=== PATIENT | female | born 1950 | race Caucasian/White ===

== ENCOUNTER 2020-04-05 08:29 | Outpatient (CLI) | payer MEDICARE, SELFPAY ==
--- NOTE | ~2020-04-05 | DEXA_ITS ---
Bone Density Report Name: Gogo Pang Age: 69 Sex: Female Ethnicity: White Date of : 1950 Indication: osteopenia; prior fracture; hysterectomy; Referring Provider: PHYSICIAN NOT ON STAFF Study: Bone densitometry was performed. Exam Date: April 05, 2020 Accession number: [id number] Bone Density: Region BMD T-score Z-score Classification AP Spine (L1-L4) 0.775 -2.5 -0.3 Osteoporosis Femoral Neck (Left) 0.665 -1.7 0.2 Osteopenia Total Hip (Left) 0.752 -1.6 0.0 Osteopenia Total Hip Bilateral Avg 0.757 -1.6 0.0 Osteopenia Femoral Neck (Right) 0.691 -1.4 0.4 Osteopenia Total Hip (Right) 0.762 -1.5 0.0 Osteopenia World Health Organization criteria for BMD impression classify patients as: Normal (T-score at or above -1.0), Osteopenia (T-score between -1.0 and -2.5), or Osteoporosis (T-score at or below -2.5). 10-year Fracture Risk: FRAX not reported because: Some T-score for Spine Total or Hip Total or Femoral Neck at or below -2.5 Previous Exams: Region Exam Age BMD T-score BMD Change BMD Change Date g/cm2 vs Baseline vs Previous AP Spine(L1-L4) 04/05/2020 69 0.775 -2.5 -0.021(-2.7%) -0.021(-2.7%) 11/21/2016 66 0.797 -2.3 Total Hip(Left) 04/05/2020 69 0.752 -1.6 0.003(0.4%) 0.003(0.4%) 11/21/2016 66 0.749 -1.6 Total Hip(Right) 04/05/2020 69 0.762 -1.5 -0.004(-0.5%) -0.004(-0.5%) 11/21/2016 66 0.767 -1.4 *Denotes significance at 95% confidence level, LSC for AP Spine = 0.022 g/cm2, LSC for Total Hip = 0.027 g/cm2 Clinical Information Provided by Patient: Has had a low trauma fracture Has the following medical conditions: Hysterectomy Patient maximum height was 67.5 Menopause Age: 36 Onset of menses at age 13 Number of children 2 Impression: The patient has established osteoporosis, based on the Total Spine T-score and the existence of a prior fracture. The patient has risk factors, including: previous fracture. No significant bone loss was observed. Discussion: HIGH RISK OF FRACTURE. BONE DENSITY IS UNDESIRABLY LOW AT ONE OR MORE SKELETAL SITES, CONSISTENT WITH POSTMENOPAUSAL OSTEOPOROSIS. This patient's lowest T-score, in a patient who has previously fractured, meets the World Health Organization's (WHO) criteria for severe osteoporosis. In untreated patients, the risk of osteoporotic fracture increases approximately two-fold for each 1.0 SD decrease in T-score. Low bone density is not the only risk factor for fractu
--- NOTE | ~2020-04-05 | MM_ITS ---
EXAMINATION: MM screening [facility] BI w jaden HISTORY: Screening mammogram TECHNIQUE: Craniocaudal and mediolateral oblique 3-D tomosynthesis images were obtained and synthetic 2-D images were generated. CAD analysis was submitted and interpreted. COMPARISON: 07/07/2018, 06/26, 07/01/2016 bilateral digital screening mammogram examinatio ns BREAST PARENCHYMAL COMPOSITION: There are scattered areas of fibroglandular density. FINDINGS: Bilateral benign calcifications including partially calcified left fibroadenoma in the lowe r mid left breast. There is no evidence of suspicious mass, calcification, or architectural distortio n to suggest malignancy in either breast. There has been no suspicious interval change. IMPRESSION: 1. No mammographic evidence of malignancy. 2. Recommend routine screening mammography in one year. BI-RADS Category 2: Benign finding(s). Reviewed, dictated and finalized at location A.
== END 2020-04-05 08:30 | disposition home or self-care (01) ==
DX: Z12.31 Encounter for screening mammogram for malignant neoplasm of breast (principal); Z78.0 Asymptomatic menopausal state; M81.0 Age-related osteoporosis without current pathological fracture; M85.852 Other specified disorders of bone density and structure, left thigh; M85.851 Other specified disorders of bone density and structure, right thigh
CPT/HCPCS: 77063; 77067; 77080

== ENCOUNTER 2021-04-10 09:46 | Outpatient (CLI) | payer MEDICARE, SELFPAY ==
--- NOTE | ~2021-04-10 | MM_ITS ---
EXAMINATION: MM screening [facility] BI w jaden HISTORY: Screening TECHNIQUE: Craniocaudal and mediolateral oblique 3-D tomosynthesis images were obtained and synthetic 2-D images were generated. CAD analysis was submitted and interpreted. COMPARISON: Comparison to multiple prior studies sequentially, with oldest reviewed study dated 06/07. BREAST PARENCHYMAL COMPOSITION: There are scattered areas of fibroglandular density. FINDINGS: Stable benign-appearing left breast mass. There is no evidence of suspicious mass, calcific ation, or architectural distortion to suggest malignancy in either breast. There has been no suspicio us interval change. IMPRESSION: 1. No mammographic evidence of malignancy. 2. Recommend routine screening mammography in one year. BI-RADS Category 2: Benign finding(s). Reviewed, dictated and finalized at location A.
== END 2021-04-10 09:47 | disposition home or self-care (01) ==
LOC: ANHIMG 09:51
DX: Z12.31 Encounter for screening mammogram for malignant neoplasm of breast (principal)
CPT/HCPCS: 77063; 77067

== ENCOUNTER 2022-01-29 10:28 | Outpatient (CLI) | payer MEDICARE, SELFPAY ==
--- NOTE | ~2022-01-29 | MR_ITS ---
EXAMINATION: MR knee RT wo/w con DATE: 01/29/2022 11:22 INDICATION: Localized swelling, mass and lump at the right knee TECHNIQUE: Magnetic resonance imaging (MRI) of the right knee was performed without and with 11 mL Mu ltihance intravenous contrast. Sequences included coronal PD-weighted FSE, coronal PD-weighted FS FS E, sagittal T2-weighted FSE, sagittal PD-weighted FS FSE and axial PD weighted fat saturated FSE, axi al T1-weighted fat saturated FSE and postcontrast axial, sagittal and coronal T1-weighted fat-saturat ed FSE. COMPARISON: Right knee radiographs dated 01/16/2022 FINDINGS: Medial compartment: Longitudinal tear extending obliquely from the periphery to the inferior articular surface at the kirill ction of the middle and peripheral thirds of the posterior horn of the medial meniscus. Shallow chond ral ulceration along the anterior weightbearing medial femoral condyle. Lateral compartment: Lateral meniscus is normal. Shallow chondral ulceration at the anterior weightbearing lateral femoral condyle. Mild partial-thickness chondral fissuring at the posterior aspect of the lateral tibial [place]. Patellofemoral compartment: Partial-thickness chondral ulceration and deep fissuring with underlying subarticular edema-like and cystlike changes at the patellar apical ridge and medial facet. Chondral swelling with mild increased signal at the cephalad aspect of the trochlear groove. Ligaments and tendons: Anterior and posterior cruciate ligaments are normal. The medial collateral ligament and fibular marcus ateral ligament complex are normal. The patellar tendon is normal. Distal quadriceps tendinopathy. Th ere is fusiform region within the anterior aspect of the distal quadriceps tendon which measures appr oximately 3.8 cm proximal to distal and 2.9 x 1.3 cm maximal orthogonal dimensions. The region demons trates peripheral enhancement associated frayed margins of the partially torn rectus femoris componen t of the distal quadriceps tendon. The central nonenhancing region demonstrates heterogeneous signal intensity likely related to associated hematoma. The tear appears to also involve a small portion of the more posterior tendinopathy vastus lateralis. The visualized medial and lateral hamstring tendons as well as the iliotibial band are normal. Fluid: Physiologic amount of fluid in the joint space. No loose osteochondral bodies identified. Small Nrei 's cyst Osseous/other: Normal marrow signal. No fracture or pathologic marrow replacing process. No other abnormally enhanci ng lesions identified. IMPRESSION: 1. Mild distal quadriceps tendinopathy with partial tear of primarily the rectus femoris component of the distal quadriceps tendon. 2. 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 3. Small Neri's cyst. Reviewed, dictated and finalized at location B. IMPRESSION: 1. Mild distal quadriceps tendinopathy with partial tear of primarily the rectu s femoris component of the distal quadriceps tendon. 2. 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 3. Small Neri's cyst.
[2022-01-29 11:01] LABS: Estimated Glomerular Filt Rate > 60
== END 2022-01-29 10:29 | disposition home or self-care (01) ==
PROVIDERS: Visit Provider Nurse Practitioner Family
DX: R22.41 Localized swelling, mass and lump, right lower limb (principal); M17.11 Unilateral primary osteoarthritis, right knee; S86.811A Strain of other muscle(s) and tendon(s) at lower leg level, right leg, initial encounter; M22.41 Chondromalacia patellae, right knee; M71.21 Synovial cyst of popliteal space [Baker], right knee
CPT/HCPCS: 73723; A9577

== ENCOUNTER 2022-04-18 08:05 | Outpatient (CLI) | payer MEDICARE, SELFPAY ==
--- NOTE | ~2022-04-18 | MM_ITS ---
EXAMINATION: MM screening [facility] BI w jaden HISTORY: Screening mammogram TECHNIQUE: Craniocaudal and mediolateral oblique 3-D tomosynthesis images were obtained and synthetic 2-D images were generated. CAD analysis was submitted and interpreted. COMPARISON: 04/10/2021, 04/05/2020, 07/07/2018 BREAST PARENCHYMAL COMPOSITION: There are scattered areas of fibroglandular density. FINDINGS: Scattered benign-appearing calcifications are present. There is no suspicious mass, calcifi cation, or architectural distortion to suggest malignancy in either breast. There has been no suspici ous interval change. IMPRESSION: 1. No mammographic evidence of malignancy. 2. Recommend routine screening mammography in one year. BI-RADS Category 2: Benign finding(s). Reviewed, dictated and finalized at location A.
== END 2022-04-18 08:06 | disposition home or self-care (01) ==
DX: Z12.31 Encounter for screening mammogram for malignant neoplasm of breast (principal)
CPT/HCPCS: 77063; 77067

== ENCOUNTER 2023-04-21 08:42 | Outpatient (CLI) | payer MEDICARE, SELFPAY ==
--- NOTE | ~2023-04-21 | MM_ITS ---
EXAMINATION: MM screening [facility] BI w jaden HISTORY: Screening TECHNIQUE: Craniocaudal and mediolateral oblique 3-D tomosynthesis images were obtained and synthetic 2-D images were generated. CAD analysis was submitted and interpreted. COMPARISON: Comparison to multiple prior studies sequentially, with oldest reviewed study dated 06/08. BREAST PARENCHYMAL COMPOSITION: There are scattered areas of fibroglandular density. FINDINGS: There is no evidence of suspicious mass, calcification, or architectural distortion to sugg est malignancy in either breast. There has been no suspicious interval change. IMPRESSION: 1. No mammographic evidence of malignancy. 2. Recommend routine screening mammography in one year. BI-RADS Category 1: Negative Reviewed, dictated and finalized at location A.
--- NOTE | ~2023-04-21 | DEXA_ITS ---
Bone Density Report Name: MADHURI REZA Age: 72 Sex: Female Ethnicity: White Date of : 1950 Indication: postmenopausal osteoporosis; hysterectomy; Referring Provider: RICARDA GREENE Study: Bone densitometry was performed. Exam Date: April 21, 2023 Accession number: [id number] Bone Density: Region BMD T-score Z-score Classification AP Spine(L1-L4) 0.763 -2.6 -0.3 Osteoporosis Femoral Neck (Left) 0.651 -1.8 0.2 Osteopenia Total Hip (Left) 0.706 -1.9 -0.2 Osteopenia Femoral Neck (Right) 0.662 -1.7 0.3 Osteopenia Total Hip (Right) 0.701 -2.0 -0.3 Osteopenia Total Hip Mean 0.703 -2.0 -0.3 Osteopenia World Health Organization criteria for BMD impression classify patients as: Normal (T-score at or above -1.0), Osteopenia (T-score between -1.0 and -2.5), or Osteoporosis (T-score at or below -2.5). 10-year Fracture Risk: FRAX not reported because: Some T-score for Spine Total or Hip Total or Femoral Neck at or below -2.5 Previous Exams: Region Exam Age BMD T-score BMD Change BMD Change Date g/cm2 vs Baseline vs Previous AP Spine (L1-L4) 04/21/2023 72 0.763 -2.6 -0.034 (-4.3%) -0.013 (-1.6%) 04/05/2020 69 0.775 -2.5 -0.021 (-2.7%) -0.021 (-2.7%) 11/21/2016 66 0.797 -2.3 Total Hip(Left) 04/21/2023 72 0.706 -1.9 -0.043 (-5.8%) -0.046 (-6.1%) 04/05/2020 69 0.752 -1.6 0.003 (0.4%) 0.003 (0.4%) 11/21/2016 66 0.749 -1.6 Total Hip(Right) 04/21/2023 72 0.701 -2.0 -0.066 (-8.6%) -0.062 (-8.1%) 04/05/2020 69 0.762 -1.5 -0.004 (-0.5%) -0.004 (-0.5%) 11/21/2016 66 0.767 -1.4 *Denotes significance at 95% confidence level, LSC for AP Spine = 0.022 g/cm2, LSC for Total Hip = 0.027 g/cm2 Clinical Information Provided by Patient: Has used the following medications: Vitamin D, Calcium Has the following medical conditions: Hysterectomy Patient maximum height was 67.5 Menopause Age: 31 Does not regularly consume dairy products Onset of menses at age 14 Number of children 2 Impression: The patient has osteoporosis, based on the Total Spine T-score. The BMD for the Total Hip(Left) decreased, changing by -6.1% since the last DXA exam. The BMD for the Total Hip(Right) decreased, changing by -8.1% since the last DXA exam. Discussion: INCREASED RISK OF FRACTURE. BONE DENSITY IS UNDESIRABLY LOW AT ONE OR MORE SKELETAL SITES, CONSISTENT WITH POSTMENOPAUSAL OSTEOPOROSIS. This patient's lowest T-score meets the Wo
== END 2023-04-21 08:43 | disposition home or self-care (01) ==
DX: Z12.31 Encounter for screening mammogram for malignant neoplasm of breast (principal); Z78.0 Asymptomatic menopausal state; M81.0 Age-related osteoporosis without current pathological fracture; M85.852 Other specified disorders of bone density and structure, left thigh; M85.851 Other specified disorders of bone density and structure, right thigh
CPT/HCPCS: 77063; 77067; 77080

== ENCOUNTER 2024-07-25 10:32 | Outpatient (CLI) | payer MEDICARE, SELFPAY ==
--- NOTE | ~2024-07-25 | MR_ITS ---
EXAMINATION: MR knee RT wo con DATE: 07/25/2024 11:21 INDICATION: Pain in right knee. TECHNIQUE: Magnetic resonance imaging (MRI) of the right knee was performed without intravenous contr ast. Sequences included axial PD-weighted FS FSE, coronal PD-weighted FSE and PD-weighted FS FSE, sag ittal PD-weighted FSE, and sagittal T2-weighted FS FSE. COMPARISON: Right knee radiographs 05/03/2024, MRI 01/29/2022 FINDINGS: Medial compartment: There is an undersurface horizontal tear of posterior horn of medial meniscus. There is cartilage tabby face irregularity of femoral condyle and tibial condyle. Lateral compartment: Lateral meniscus is normal. There is cartilage surface irregularity of tibial condyle. Femoral cartil age is normal. Patellofemoral compartment: There is deep partial-thickness cartilage loss of patellar medial and lateral facets and median ridge with mild subchondral edema-like marrow signal intensity and subchondral cyst. There is full-thickne ss cartilage loss of the medial trochlea. Osteophytes are noted. Ligaments and tendons: The anterior and posterior cruciate ligaments are normal. There are changes of prior sprains of media l collateral ligament and fibular collateral ligament characterized by increased signal intensity pro ximally. There is mild patellar tendinopathy. There is severe tendinopathy and partial tear of the qu adriceps tendon. Fluid: There is a small knee joint effusion. There is a small Neri's cyst. There is mild prepatellar and garcia perficial infrapatellar bursitis. IMPRESSION: 1. Severe chondrosis of patellofemoral compartment and mild chondrosis of medial and lateral compartm ents. 2. Tear of medial meniscus. 3. Small knee joint effusion. 4. Small Neri's cyst. 5. Severe tendinopathy and partial tear of quadriceps tendon. Reviewed, dictated and finalized at location A. Y WORKER IMPRESSION: 1. Severe chondrosis of patellofemoral compartment and mild chondrosis of media l and lateral compartments. 2. Tear of medial meniscus. 3. Small knee joint effusion. 4. Small Neri's cyst. 5. Severe tendinopathy and partial tear of quadriceps tendon.
== END 2024-07-25 10:33 | disposition home or self-care (01) ==
LOC: MICIMG 10:33
PROVIDERS: Visit Provider Nurse Practitioner Family
DX: S83.241A Other tear of medial meniscus, current injury, right knee, initial encounter (principal); S76.111A Strain of right quadriceps muscle, fascia and tendon, initial encounter; M94.261 Chondromalacia, right knee; M25.461 Effusion, right knee; M71.21 Synovial cyst of popliteal space [Baker], right knee; X58.XXXA Exposure to other specified factors, initial encounter
CPT/HCPCS: 73721